=== PATIENT | male | born 1975 | race Caucasian/White ===

== ENCOUNTER 2016-11-15 12:03 | Outpatient (CLI) ==
[2016-11-15 12:48] LABS: HEMATOCRIT 45.2 % (42.0-52.0); HEMOGLOBIN 16.2 g/dl (14.0-18.0); MEAN CORPUSCULAR HEMOGLOBIN 32.3 pg (27.0-31.0); MEAN CORPUSCULAR HGB CONC 35.8 (31.8-35.4); RED BLOOD COUNT 5.02 10^6/ul (4.70-6.10); WHITE BLOOD COUNT 7.31 K/ul (4.2-10.2)
[2016-11-15 12:57] LABS: ALBUMIN 3.9 g/dL (3.4-5.0); ALBUMIN/GLOBULIN RATIO 1.22; ANION GAP 14.2; BILIRUBIN,TOTAL 0.55 mg/dL (0.00-1.20); BUN/CREATININE RATIO 10.52; CALCIUM 9.7 mg/dL (8.2-10.2); CREATININE 0.95 mg/dL (0.60-1.10); POTASSIUM 4.2 mmol/L (3.5-5.1); TOTAL PROTEIN 7.1 g/dL (6.4-8.2)
[2016-11-16 06:11] LABS: ESTRADIOL 64.9 pg/mL (7.6-42.6); TESTOSTERONE 1269 ng/dL (264-916)
== END 2016-11-15 12:04 | disposition home or self-care (01) ==
LOC: LAB 12:03
PROVIDERS: ATTEND Family Medicine
DX: E29.1 Testicular hypofunction (principal); R53.83 Other fatigue; Z79.899 Other long term (current) drug therapy
CPT/HCPCS: 36415; 80053; 82670; 84402; 84403; 85027

== ENCOUNTER 2017-04-18 14:07 | Outpatient (CLI) | END 2017-04-18 14:08 | disposition home or self-care (01) | LOC: LAB 14:07 | PROVIDERS: ATTEND Family Medicine | DX: E29.1 Testicular hypofunction (principal); E55.9 Vitamin D deficiency, unspecified; R53.83 Other fatigue; R41.3 Other amnesia; Z12.5 Encounter for screening for malignant neoplasm of prostate; Z79.899 Other long term (current) drug therapy | CPT/HCPCS: 36415; 80053; 82306; 82607; 82670; 82746; 84402; 84403; 84439; 84443; 84481; 85027 ==

== ENCOUNTER 2018-05-20 07:06 | Outpatient (CLI) | END 2018-05-20 07:07 | disposition home or self-care (01) | LOC: LAB 07:06 | PROVIDERS: ATTEND Family Medicine | DX: E78.5 Hyperlipidemia, unspecified (principal); E55.9 Vitamin D deficiency, unspecified | CPT/HCPCS: 36415; 80061; 82306 ==

== ENCOUNTER 2018-07-23 06:56 | Outpatient (CLI) | END 2018-07-23 06:57 | disposition home or self-care (01) | LOC: LAB 06:56 | PROVIDERS: ATTEND Family Medicine | DX: E29.1 Testicular hypofunction (principal); E78.5 Hyperlipidemia, unspecified; E55.9 Vitamin D deficiency, unspecified; N52.9 Male erectile dysfunction, unspecified; R53.83 Other fatigue | CPT/HCPCS: 36415; 80053; 80061; 82306; 82670; 84402; 84403; 84439; 84443; 84481; 85027 ==